=== PATIENT | female | born 1975 | race African-American/Black ===

== ENCOUNTER 2017-11-09 21:35 | Emergency (ER) | payer SELFPAY ==
[2017-11-09] MEDS ORDERED: Clindamycin 150 MG CAP ONE (21:57)
[2017-11-09] MEDS ORDERED: Ketorolac Tromethamine 30 MG/ML VIAL ONE (21:57)
[2017-11-09] MEDS ORDERED: Sulfameth/Trimethoprim DS 800-160mg TAB ONE (21:57)
== END 2017-11-09 22:20 | disposition home or self-care (01) ==
LOC: NAV ERS 21:35
DX: L03.115 Cellulitis of right lower limb (principal); I10 Essential (primary) hypertension; Z79.899 Other long term (current) drug therapy
CPT/HCPCS: 87070; 87077; 87186; 87205; 96372; J1885

== ENCOUNTER 2018-05-26 16:21 | Emergency (ER) | payer SELFPAY ==
[~2018-05-26 16:21] MED LIST: Iopamidol 370 76% 100 ML VIAL ONE
[2018-05-26 17:07] LABS: PTT 28.6 SEC (22.9-36.1); Prothrombin Time 13.7 SEC (12.0-14.7)
[2018-05-26 17:10] LABS: BHCG - Serum Negative (NEGATIVE); Pregs Control Bar Appear? YES (CONTROL BAR)
[2018-05-26] MEDS ORDERED: Morphine 4 MG/ML VIAL ONE (17:10)
[2018-05-26] MEDS ORDERED: Ondansetron PF 4 MG/2 ML Vial ONE (17:10)
[2018-05-26 17:15] LABS: Hemoglobin 10.5 g/dL (12.0-16.0); Mean Corpuscular HGB CONC 30.9 g/dL (32.0-36.0); Mean Corpuscular Hemoglobin 27.5 pg (27.0-31.0); Mean Corpuscular Volume 89.1 fL (78.0-98.0); Mean Platelet Volume 9.3 fL (7.4-10.4); Platelet Count 270 thou/uL (130-400); RBC Distribution Width 13.8 % (11.5-14.5); Red Blood Cell (RBC) Count 3.83 mill/uL (4.20-5.40); White Blood Cell (WBC) Count 5.9 thou/uL (4.8-10.8)
[2018-05-26 17:27] LABS: ALT (SGPT) 13 U/L (8-55); AST (SGOT) 19 U/L (5-34); Albumin 4.1 g/dL (3.5-5.0); Alkaline Phosphatase 72 U/L (40-150); Anion Gap 13 mmol/L (10-20); BUN (Urea Nitrogen) 8 mg/dL (7.0-18.7); Bilirubin, Total 0.3 mg/dL (0.2-1.2); Calc. Creatinine Clearance 0 mL/min (70-130); Calcium 9.7 mg/dL (7.8-10.44); Carbon Dioxide 26 mmol/L (22-29); Chloride 105 mmol/L (98-107); Estimated GFR-MDRD Greater than 90; Globulin 3.6 g/dL (2.4-3.5); Glucose 85 mg/dL (70-105); Potassium 3.7 mmol/L (3.5-5.1); Protein, Total 7.7 g/dL (6.0-8.3); Sodium 140 mmol/L (136-145)
[2018-05-26 17:29] LABS: Eosinophils 4 % (0-10); Lymphocytes 39 % (21-51); MDiff Complete? YES; Monocytes 8 % (0-10); Neutrophil 48 % (42-75); Platelet Morphology Comment Appears Adequate; RBC Morphology Normal
[2018-05-26 17:35] LABS: Bilirubin Negative (Negative); Blood, Urine Negative (Negative); Clarity Clear (Clear); Glucose, Urine (Dipstick) Negative (Negative); Leukocyte Negative (Negative); Nitrite Negative (Negative); Protein, Urine (Dipstick) Negative (Neg-Trace); Urobilinogen 0.2 mg/dL (0.2-1.0); pH, Urine 5.5 (5.0-9.0)
[2018-05-26] MEDS ORDERED: Ketorolac Tromethamine 30 MG/ML VIAL ONE (18:42)
[2018-05-26] MEDS ORDERED: cloNIDine 0.1 MG TAB ONE (18:42)
--- NOTE | 2018-05-26 18:57 | ULT ---
TRANSABDOMINAL PELVIC ULTRASOUND: 05/26/18 HISTORY: Vaginal bleeding and abdominal pain. Patient refused transvaginal exam. FINDINGS: The uterus measures 12.1 x 4.5 x 6.1 cm with multiple masses consistent with fibroids, the largest me asuring 11.6 x 8.4 cm. The endometrium measures 3 mm in thickness without endometrial fluid. The ovaries are not visualized. No adnexal mass or free fluid in the cul-de-sac is seen. IMPRESSION: Fibroid uterus. POS: [facility]
--- NOTE | 2018-05-26 19:47 | CT ---
CT ABDOMEN AND PELVIS WITH CONTRAST: 05/26/18 HISTORY: Abdominal pain, vaginal bleeding. COMPARISON: Pelvic ultrasound same day. FINDINGS: The lung bases are clear. No pericardial effusion. There are innumerable masses replacing the normal uterine parenchyma. Appear to be multiple masses in different phases of degeneration. There is an abnormal mass, intramural, which is cystic with hemorr robby measuring 5.5 x 7.2 x 5 cm with a peripheral nodule. There is also abnormal mass along the right adnexa extending along the ovarian ligament. The aortoiliac contour is nonaneurysmal. There is some mass effect along the left and right common il iac veins by this mass. Large draining left gonadal veins and right gonadal veins. No acute osseous abnormality. IMPRESSION: Very large uterus innumerous masses likely of fibroids in different stages of degeneration. There is also a cystic mass versus a dilated endometrial cavity with hemorrhage in a submucosal fibroid. There also appears to be extrauterine leiomyomas along the round ligament and extending along the right ad nexa. Gynecologic consultation advised. Malignant degeneration could not be excluded. POS: HOME
== END 2018-05-26 19:50 | disposition home or self-care (01) ==
LOC: NAV ERS 16:21
DX: D25.9 Leiomyoma of uterus, unspecified (principal); I10 Essential (primary) hypertension
CPT/HCPCS: 74177; 76856; 80053; 81003; 84703; 85025; 85610; 85730; 96374; 96375; J1885; J2270; J2405; Q9967

== ENCOUNTER 2020-05-01 16:38 | Emergency (ER) | payer MEDICAID, OTHER, SELFPAY ==
[2020-05-01] MEDS ORDERED: Ondansetron PF 4 MG/2 ML Vial ONE (17:03)
[2020-05-01] MEDS ORDERED: Fentanyl 100 MCG/2 ML VIAL ONE ×2 (17:03→17:59)
[2020-05-01 17:11] LABS: #Basophils 0.1 thou/uL (0.0-0.2); #Lymphocytes 1.6 thou/uL (1.20-3.40); #Monocytes 0.8 thou/uL (0.11-0.59); #Neutrophils 12.7 thou/uL (1.40-6.50); %Basophils 0.4 % (0.0-1.0); %Eosinophils 0.1 % (0.0-10.0); %Lymphocytes 10.2 % (21.0-51.0); %Monocytes 5.3 % (0.0-10.0); Hemoglobin 14.9 g/dL (12.0-16.0); Mean Corpuscular HGB CONC 33.8 g/dL (32.0-36.0); Mean Corpuscular Hemoglobin 30.2 pg (27.0-31.0); Mean Corpuscular Volume 89.5 fL (78.0-98.0); Mean Platelet Volume 9.4 fL (7.4-10.4); Platelet Count 229 thou/uL (130-400); RBC Distribution Width 12.3 % (11.5-14.5); Red Blood Cell (RBC) Count 4.92 mill/uL (4.20-5.40); White Blood Cell (WBC) Count 15.1 thou/uL (4.8-10.8)
[2020-05-01 17:25] LABS: ALT (SGPT) 13 U/L (8-55); AST (SGOT) 12 U/L (5-34); Albumin 4.1 g/dL (3.5-5.0); Alkaline Phosphatase 98 U/L (40-110); Anion Gap 19 mmol/L (10-20); BUN (Urea Nitrogen) 13 mg/dL (7.0-18.7); Bilirubin, Total 0.8 mg/dL (0.2-1.2); Calc. Creatinine Clearance 0 mL/min (70-130); Carbon Dioxide 27 mmol/L (22-29); Chloride 93 mmol/L (98-107); Globulin 4.5 g/dL (2.4-3.5); Glucose 106 mg/dL (70-105); Potassium 3.3 mmol/L (3.5-5.1); Protein, Total 8.6 g/dL (6.0-8.3); Sodium 136 mmol/L (136-145)
[2020-05-01] MEDS ORDERED: Sodium Chloride 0.9% 100 ML ONE (18:11)
[2020-05-01] MEDS ORDERED: Piperacillin/Tazobactam 4.5 GM VIAL ONE (18:11)
== END 2020-05-01 19:09 | disposition short-term general hospital (02) ==
LOC: NAV ERS 16:38
DX: K65.1 Peritoneal abscess (principal); I10 Essential (primary) hypertension; Z79.899 Other long term (current) drug therapy
CPT/HCPCS: 74177; 80053; 83605; 85025; 87040; 93005; 96365; 96375; 96376; J2405; J2543; J3010; J3490; Q9967

== ENCOUNTER 2023-01-06 09:01 | Outpatient (CLI) | payer BC | END 2023-01-06 09:02 | disposition home or self-care (01) | LOC: NAV RAD 09:01 | PROVIDERS: ATTEND Nurse Practitioner Family | DX: M25.511 Pain in right shoulder (principal); M54.2 Cervicalgia; M47.812 Spondylosis without myelopathy or radiculopathy, cervical region | CPT/HCPCS: 72040 ==

== ENCOUNTER 2023-01-18 13:48 | Emergency (ER) | payer BC ==
[2023-01-18] MEDS ORDERED: Ibuprofen 200 MG TAB ONE (14:32)
== END 2023-01-18 14:52 | disposition home or self-care (01) ==
LOC: NAV ERS 13:48
DX: J32.9 Chronic sinusitis, unspecified (principal); I10 Essential (primary) hypertension; Z79.899 Other long term (current) drug therapy
CPT/HCPCS: 99283

== ENCOUNTER 2023-08-17 11:23 | Emergency (ER) | payer BC ==
[2023-08-17] MEDS ORDERED: Ibuprofen 800 MG TAB ONE (11:43)
[2023-08-17] MEDS ORDERED: HYDROcodone/Acetaminophen 10/325 mg Tablet ONE (11:43)
== END 2023-08-17 11:52 | disposition home or self-care (01) ==
LOC: NAV ERS 11:23
DX: M54.50 Low back pain, unspecified (principal); G89.29 Other chronic pain; I10 Essential (primary) hypertension; Z79.899 Other long term (current) drug therapy
CPT/HCPCS: 99283